=== PATIENT | female | born 1935 | race Caucasian/White ===

== ENCOUNTER 2019-11-23 01:12 | Outpatient (CLI) | payer MEDICARE, OTHER, SELFPAY ==
[2019-11-23 18:02] LABS: SARS-CoV-2 RNA PCR Negative
== END 2019-11-23 01:13 | disposition home or self-care (01) ==
LOC: ANHCOVIDDT 01:12
PROVIDERS: PCP Family Medicine; Visit Provider Plastic Surgery
DX: Z01.812 Encounter for preprocedural laboratory examination (principal); Z20.828 Contact with and (suspected) exposure to other viral communicable diseases
CPT/HCPCS: 87635; C9803; U0003

== ENCOUNTER 2019-11-25 02:09 | Day surgery (SDC) | payer MEDICARE, OTHER, SELFPAY ==
[2019-11-19 14:25] VITALS: BMI 25.0
[2019-11-25] VITALS (10 sets, daily range): BP systolic 117–179; BP diastolic 59–76; PULSE 59–69; RESP 14–20; TEMP 36.4; O2SAT 92–97
--- NOTE | 2019-11-25 07:14 | WPDHPUPDATE1 ---
History and Physical Update Update Date/Time: 11/25/19 07:14 History and Physical has been reviewed, including an updated exam of the patient. There are NO changes in the patient's condition. Risks, benefits, and alternatives have been discussed and questions answered. Patient agrees to proceed with procedure.
[2019-11-25] MEDS: LIDO 1%/EPINEPHRINE 1:100,000 20 ML VIAL INFILTRATE (09:32)
[2019-11-25] MEDS: MUPIROCIN 2% OINT 22 GM TUBE 1 APPLIC TOPICAL (10:18)
--- NOTE | 2019-11-25 10:24 | P.OP_ITS ---
Procedure Note - Detailed Date of procedure: 11/25/19 Pre-op diagnosis: recurrent BCCA left cheek, neoplasm left arm Post-op diagnosis: other (Suture granuloma of left cheek. Neoplasm of left arm.) Procedure performed: 1.0 cm re excision of surgical site with margin positive for BCC left anterior cheek with FS and complex repair 4.0 cm. 0.8 cm excision of neoplasm of left arm with intermediate repair 1.5 cm. Description of procedure: The left cheek site and left arm site were marked as patient waited in holding. She was taken to the operating room and placed supine on the operating table. A time-out was held and confirmed. The Face and left arm were prepped and draped in the usual fashion. The 2 sites were carefully examined and marked for excision. Both were for infiltrated with 1% lidocaine with epinephrine. The lesion from the of cheek was taken 1st as a full-thickness skin ellipse approximately 0.8 cm in width and 3 cm in length. This excised the existing scar and the slightly red and inflamed area thought to be recurrence. The full-thickness specimen was taken into the subcutaneous tissue. The superior aspect was marked with a suture and specimen sent for frozen section. Pathologist reports no residual basal cell carcinoma noted but a suture granuloma was found, margins were free. The site was carefully cauterized since the patient was on aspirin and clopidogrel. The wound margins in this case required undermining more than a cm in all directions this was an extensive undermining to allow coaptation of the wound margin in a site that had been previously excised. The wound was closed with intradermal 4-0 Vicryl and running 6 0 nylon. The lesion from the arm was excised as a small ellipse. The specimen sent for permanent section. The wound was closed with intradermal 4-0 Vicryl and running 6 0 nylon. The patient has multiple allergies but tolerates mupirocin and a tube was sent for wound care. She has instructions in wound care and follow-up no other prescriptions are given. Anesthesia: local Surgeon: Ariel Stallworth MD Supervisor Housecleaner: none Estimated blood loss (mL): 2 Tourniquet time (min): 0 Drains: No Packing: No Pathology: yes Complications: No immediate complications Condition: stable Disposition: same day
--- NOTE | 2019-11-25 10:43 | PM.OP ---
Procedure Note - Brief Procedure Note - Brief Date of procedure: 11/25/19 Pre-op diagnosis: recurrent BCCA left cheek, neoplasm left arm Post-op diagnosis: other (Suture granuloma of prior surgical site with known positive margin for BCC. Neoplasm of left arm.) Procedure performed: Reexcision of surgical site left cheek with FS and complex repair 4.0 cm. 0.8 cm excision of neoplasm with intermediate repair 1.5 cm. Anesthesia: local Surgeon: Ariel Stallworth MD Terminal Make Up Operator: None Estimated blood loss (mL): 2 Tourniquet time (min): 0 Drains: No Packing: No Pathology: yes Complications: No immediate complications Condition: stable Disposition: same day Findings: Suture granuloma without BCC.
== END 2019-11-25 11:06 | disposition home or self-care (01) ==
PROVIDERS: PCP Family Medicine; Visit Provider Plastic Surgery
PROC: (CPT 11641; principal; 2019-11-25 09:30)
PROC: (CPT 11641; 2019-11-25 09:30)
DX: C44.319 Basal cell carcinoma of skin of other parts of face (principal); L57.0 Actinic keratosis
CPT/HCPCS: 11641; 13132; 11401; 12031; 88305; 88331; 88332; A9270